=== PATIENT | female | born 1985 | race Caucasian/White ===

== ENCOUNTER 2018-01-19 14:18 | Emergency (ER) | payer OTHER ==
[2018-01-19 14:25] VITALS: O2SAT 99
--- NOTE | 2018-01-19 15:04 | ED PDOC ---
HPI: Female Pain Time Seen by Provider: 01/19/18 14:56 Chief Complaint (Nursing): Female Genitourinary Chief Complaint (Provider): Female Genitourinary History Per: Patient History/Exam Limitations: no limitations Onset/Duration Of Symptoms: Days (since 12/09) Additional Complaint(s): Patient is a 32 y/o female who presents to the ED for evaluation of light vaginal bleeding, onset since 12/09/17. Patient reports she was at that time and started taking pills to abort the . Since starting the pills she's been having the vaginal bleeding but states it is not constant and usually requires 1-2 pads/day. Patient reports that last week she had associated pelvic pain which she describes as cramping that has since improved. 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 She states she was advised that she needs another surgical procedure but Dr. Mclean, her primary doctor, left the practice and patient didn't know where else to follow up, so she came to the ED. No other complaints at present. PMD: was Dr. Cara Mclean, but currently does not have one Abnormal Vaginal Bleeding: Yes Last Menstral Period: November 12 Past Medical History Reviewed: Historical Data, Nursing Documentation, Vital Signs Vital Signs: Last Vital Signs Temp 97.8 F 01/19/18 14:23 Pulse 61 01/19/18 14:23 Resp 16 01/19/18 14:23 BP 112/71 01/19/18 14:23 Pulse Ox 99 01/19/18 14:23 - Medical History PMH: Anemia - Surgical History Other surgeries: cervical biopsy - Family History Family History: States: Unknown Family Hx - Home Medications Home Medications: Ambulatory Orders Medication Instructions Recorded RX: Naproxen 500 mg PO BID PRN #20 tab 01/19/18 - Allergies Allergies/Adverse Reactions: Allergies Allergy/AdvReac Type Severity Reaction Status Date / Time No Known Allergies Allergy Verified 01/19/18 14:23 Review of Systems ROS Statement: Except As Marked, All Systems Reviewed And Found Negative Constitutional: Negative for: Fever, Chills Genitourinary Female: Positive for: Vaginal Bleeding Physical Exam - Reviewed Nursing Documentation Reviewed: Yes Vital Signs Reviewed: Yes - Physical Exam Comments: GENERAL APPEARANCE: Patient is awake, alert, oriented x 3, in no distress. Resti ng comfortably. SKIN: Warm, dry; (-) cyanosis. EYES: (-) conjunctival pallor, (-) scleral icterus. ENMT: Mucous membranes moist. Airway patent, (-) stridor. NECK: Supple, FROM CHEST AND RESPIRATORY: (-) rales, (-) rhonchi, (-) wheezes; breath sounds equal bilaterally. Respirations even and nonlabored. HEART AND CARDIOVASCULAR: (-) irregularity ABDOMEN AND GI: Soft (-) distention. Bowel sounds active x4; (-) tenderness (-) CVA tenderness. EXTREMITIES: (-) deformity NEURO AND PSYCH: Mental status as above; (-) focal findings. Gait: steady. Speech: clear (-) facial asymmetry (-) aphasia. - Laboratory Results Result Diagrams: 01/19/18 16:10 01/19/18 16:10 Urine POC: Negative Urine dip results: Positive for: Blood (moderate). Negative for: Leukocyte Esterase, Nitrate, Ketones, Glucose, Bilirubin, Protein - ECG O2 Sat by Pulse Oximetry: 99 (RA) Pulse Ox Interpretation: Normal Medical Decision Making Medical Decision Making: Time: 15:00 Impression: Menorrhagia Initial Plan: Type and screen CMP Preg test Urine dip CBC w/ diff US - Transvaginal 1505 Udip reviewed. U/A and U/C ordered. Upreg: negative 1730 CBC and CMP unremarkable. H&H stable. U/A (+) hematuria. Pending U/S evaluation Blood Type: O+ Patient states she was able to get an appt with [facility] mid January. 1810 Patient in U/S. 1845 Date of service: 01/19/2018 HISTORY: bleeding COMPARISON: None available. TECHNIQUE: Transvaginal ultrasound FINDINGS: UTERUS: Measures 7.4 x 4.3 x 5.0 cm. Anteverted. ENDOMETRIUM: Measures 8 mm in diameter. Anechoic foci, possibly small cysts. CERVIX: No cervical abnormality identified. RIGHT OVARY: Measures 3.3 x 1.4 x 3.1 cm. Follicles. Blood flow is demonstrated to the right ovary. LEFT OVARY: Measures 2.1 x 1.9 x 2.0 cm. Blood flow is demonstrated to the left ovary. FREE FLUID: No significant free fluid noted. OTHER FINDINGS: None. IMPRESSION: Small anechoic foci within the endometrial cavity, possibly small cysts. status unknown. Clinical correlation. 1845 On re-evaluation, patient offers no additional complaints. On exam, patient remains AAOx3, in no acute distress. Lungs clear to auscultation, cardiac RRR, abdomen soft, non-tender, repeat neuro exam shows no focal findings. VSS, stable for discharge. Lab/Diagnostic results d/w the patient in great detail. Diagnosis of Menorrhagia d/w the patient. Based on history, exam and diagnostic results, plan will be for outpatient follow up with OBGYN. Patient instructed to follow-up with pmd / referral provided / the clinic in 1- 2 days without fail. Return to the emergency room at any time for any new or worsening symptoms. Patient states she fully agrees with and understands discharge instructions. States that she agrees with the plan and disposition. Verbalized and repeated discharge instructions and plan. I have given the patient opportunity to ask any additional questions. ------ Scribe Attestation: Documented by Jaspal Mota, acting as a scribe for Angelina Blackwell PA-C. Provider Scribe Attestation: All medical record entries made by the Scribe were at my direction and personally dictated by me. I have reviewed the chart and agree that the record accurately reflects my personal performance of the history, physical exam, medical decision making, and the department course for this patient. I have also personally directed, reviewed, and agree with the discharge instructions and disposition. Disposition - Clinical Impression Clinical Impression: Menorrhagia - Patient ED Disposition Is Patient to be Admitted: No Counseled Patient/Family Regarding: Studies Performed, Diagnosis, Need For Followup, Rx Given - Disposition Referrals: [facility] [Outside] [facility] [Outside] Disposition: Routine/Home Disposition Time: 18:48 Condition: STABLE Additional Instructions: La atencin mdica de emergencia que recibi hoy se dirigi a los sntomas agudos de presentacin. Si le prescribieron algn medicamento, por favor llnelo y d chelsey indicado. Shanice sntomas pueden tardar varios maza en resolverse. Regrese al Departamento de Emergencia en cualquier momento si los sntomas empeoran, no mejoran o si surge algn otro problema. Comunquese con more mdico en 2 maza para janet reevaluacin y seguimiento / o llame a dick de los mdicos / clnicas a los que blandon referido y que figura en el formulario de Informacin de visitas del paciente que se incluye en more paquete de aiyana. Lleve todos los documentos que recibi al momento del aiyana junto con los medicamentos a more visita de seguimiento. Nuestro tratamiento no puede reemplazar la atencin mdica en curso por parte de un proveedor de atencin primaria (PCP) fuera del departamento de emergencias. Prescriptions: RX: Naproxen 500 mg PO BID PRN #20 tab PRN Reason: Pain, Moderate (4-7) Instructions: Absent or Irregular Periods, Heavy Periods (DC) Forms: [employer] (Icelandic) Print Language: BAHRAINI - POA Present On Arrival: None Results - Lab Results Lab Results: 01/19/18 01/19/18 01/19/18 16:10 16:10 16:10 WBC 7.2 RBC 3.81 Hgb 11.5 L Hct 33.6 L MCV 88.4 MCH 30.3 MCHC 34.3 RDW 14.2 Plt Count 231 MPV 8.2 Neut % (Auto) 54.4 Lymph % (Auto) 28.3 Hall % (Auto) 6.5 Eos % (Auto) 9.5 H Baso % (Auto) 1.3 Neut # (Auto) 3.9 Lymph # (Auto) 2.0 Hall # (Auto) 0.5 Eos # (Auto) 0.7 Baso # (Auto) 0.1 Sodium 141 Potassium 3.8 Chloride 106 Carbon Dioxide 28 Anion Gap 11 BUN 15 Creatinine 0.6 L Est GFR ( Amer) > 60 Est GFR (Non-Af Amer) > 60 Random Glucose 90 Calcium 9.0 Total Bilirubin 0.2 AST 29 ALT 34 Alkaline Phosphatase 57 Total Protein 7.7 Albumin 4.2 Globulin 3.5 Albumin/Globulin Ratio 1.2 Urine Color Urine Clarity Urine pH Ur Specific [place] Urine Protein Urine Glucose (UA) Urine Ketones Urine Blood Urine Nitrate Urine Bilirubin Urine Urobilinogen Ur Leukocyte Esterase Urine RBC (Auto) Urine Microscopic WBC Ur Squamous Epith Cells Urine Bacteria Blood Type O POSITIVE Antibody Screen Negative BBK History Checked No verified bt 01/19/18 15:19 WBC RBC Hgb Hct MCV MCH MCHC RDW Plt Count MPV Neut % (Auto) Lymph % (Auto) Hall % (Auto) Eos % (Auto) Baso % (Auto) Neut # (Auto) Lymph # (Auto) Hall # (Auto) Eos # (Auto) Baso # (Auto) Sodium Potassium Chloride Carbon Dioxide Anion Gap BUN Creatinine Est GFR ( Amer) Est GFR (Non-Af Amer) Random Glucose Calcium Total Bilirubin AST ALT Alkaline Phosphatase Total Protein Albumin Globulin Albumin/Globulin Ratio Urine Color Straw Urine Clarity Clear Urine pH 7.0 Ur Specific [place] 1.005 Urine Protein Negative Urine Glucose (UA) Neg Urine Ketones Negative Urine Blood Moderate Urine Nitrate Negative Urine Bilirubin Negative Urine Urobilinogen 0.2-1.0 Ur Leukocyte Esterase Neg Urine RBC (Auto) 1 Urine Microscopic WBC < 1 Ur Squamous Epith Cells < 1 Urine Bacteria Rare Blood Type Antibody Screen BBK History Checked
[2018-01-19 15:31] LABS: SQUAMOUS EPITHIAL < 1 /hpf (0-5); URINE BACTERIA RARE (<OCC); URINE BILIRUBIN NEGATIVE (NEGATIVE); URINE BLOOD MODERATE (NEGATIVE); URINE CLARITY CLEAR (Clear); URINE COLOR STRAW (YELLOW); URINE GLUCOSE (UA) NEG (Normal); URINE LEUKOCYTE ESTERASE NEG Leu/uL (Negative); URINE PROTEIN NEGATIVE (NEGATIVE); URINE UROBILINOGEN 0.2-1.0 mg/dL (0.2-1.0)
[2018-01-19 16:17] LABS: BASO # 0.1 K/uL (0.0-0.2); BASO % 1.3 % (0.0-2.0); EOS # 0.7 K/uL (0.0-0.7); EOS % 9.5 % (0.0-4.0); HEMOGLOBIN 11.5 g/dL (12.0-16.0); LYMPH % 28.3 % (20.0-40.0); MEAN CELL VOLUME 88.4 fl (81.0-99.0); MEAN CORPUSCULAR HEMOGLOBIN 30.3 pg (27.0-31.0); MEAN CORPUSCULAR HGB CONC 34.3 g/dL (33.0-37.0); MEAN PLATELET VOLUME 8.2 fl (7.2-11.7); MONO # 0.5 K/uL (0.0-0.8); MONO % 6.5 % (0.0-10.0); NEUT # 3.9 K/uL (1.8-7.0); NEUT % 54.4 % (50.0-75.0); NRBC % 0.1 % (0.0-0.0); RBC 3.81 Mil/uL (3.80-5.20); RED CELL DISTRIBUTION WIDTH 14.2 % (11.5-14.5); WHITE BLOOD COUNT 7.2 K/uL (4.8-10.8)
[2018-01-19 16:33] LABS: ALB/GLOB RATIO 1.2 (1.0-2.1); ALBUMIN 4.2 g/dL (3.5-5.0); ALT/SGPT 34 U/L (9-52); AST/SGOT 29 U/L (14-36); BLOOD UREA NITROGEN 15 mg/dl (7-17); GFR NON-AFRICAN AMERICAN > 60
--- NOTE | 2018-01-19 18:42 | US ---
Date of service: 01/19/2018 HISTORY: bleeding COMPARISON: None available. TECHNIQUE: Transvaginal ultrasound FINDINGS: UTERUS: Measures 7.4 x 4.3 x 5.0 cm. Anteverted. ENDOMETRIUM: Measures 8 mm in diameter. Anechoic foci, possibly small cysts. CERVIX: No cervical abnormality identified. RIGHT OVARY: Measures 3.3 x 1.4 x 3.1 cm. Follicles. Blood flow is demonstrated to the right ovary. LEFT OVARY: Measures 2.1 x 1.9 x 2.0 cm. Blood flow is demonstrated to the left ovary. FREE FLUID: No significant free fluid noted. OTHER FINDINGS: None. IMPRESSION: Small anechoic foci within the endometrial cavity, possibly small cysts. status unknown. Clinical correlation.
[2018-01-19 18:58] VITALS: BP 104/65; PULSE 69; RESP 18; TEMP 98.3
== END 2018-01-19 19:00 | disposition home or self-care (01) ==
LOC: H.ER 14:18
DX: N92.0 Excessive and frequent menstruation with regular cycle (principal)

== ENCOUNTER 2018-05-17 07:29 | Day surgery (SDC) | payer SELFPAY ==
[2018-05-12 18:15] VITALS: BMI 23.3
[2018-05-17 08:24] VITALS: RESP 18
[2018-05-17] MEDS ORDERED: Lactated Ringer's 1,000 ML IV ONE (08:28)
[2018-05-17] MEDS ORDERED: Strong Iodine Topical Sol. 5%-10% ONE (08:59)
[2018-05-17] MEDS ORDERED: Ferric Subsulfate Sol(60 mL) ONE (08:59)
[2018-05-17] MEDS ORDERED: ACETIC ACID 3% 30 ML LIQUID MC ONE (08:59)
[2018-05-17] MEDS ORDERED: Midazolam 2 MG/2 ML VIAL ONE (09:40)
[2018-05-17] MEDS ORDERED: Propofol 10 mg/ml Inj (20 ML) ONE (09:40)
[2018-05-17] MEDS ORDERED: Dexamethasone 4 mg/1 ml ONE (10:12)
[2018-05-17] MEDS ORDERED: Strong Iodine Topical Sol. 5%-10% TOP ONE (10:12)
[2018-05-17] MEDS ORDERED: Ferric Subsulfate Sol(60 mL) TP ONE (10:20)
[2018-05-17 13:07] VITALS: O2SAT 100
[2018-05-17 13:52] VITALS: BP 112/78; PULSE 58; TEMP 98
--- NOTE | 2018-05-23 18:37 | OP ---
PROCEDURE DATE: 05/17/2018 PREOPERATIVE DIAGNOSIS: Cervical dysplasia with cervical intraepithelial neoplasia 2. POSTOPERATIVE DIAGNOSIS: Cervical dysplasia with cervical intraepithelial neoplasia 2. PROCEDURE: Loop electrosurgical excision procedure. SURGEON: Binu Spears MD CIRCUS ARTIST: Agustín Cunha, PGY-2 ANESTHESIA: General. FINDINGS: Area of non-uptake seen surrounding the entire squamocolumnar junction when Lugol solution was applied. ESTIMATED BLOOD LOSS: 5 mL URINE OUTPUT: Approximately 20 mL clear drained by red rubber catheter. COMPLICATIONS: None. INTRAVENOUS FLUIDS: 900 mL Lactated Ringer's. PATHOLOGY: Loop cone biopsy. DESCRIPTION OF PROCEDURE: The patient was taken to the operating room and given general anesthesia without difficulty. She was then placed in the dorsal lithotomy position. She was prepped and draped in the usual sterile manner after which a red rubber catheter was used to drain her bladder of clear yellow urine. An insulated bivalve speculum was then inserted into the vagina to expose the cervix. Lugol solution was then applied to the cervix. Areas of non-uptake was seen surrounding the transformation zone. A loop electrode was then used to obtain a cone biopsy and this was carried out in anterior to posterior manner. There was minimal bleeding encountered after the excision of the cone biopsy. The specimen was removed to be sent to pathology. The area surrounding the epithelium was cauterized with a ball electrode and the bed of the excised tissue was also cauterized and good hemostasis was noted. All instruments were then removed. The patient was then cleaned, repositioned and placed in supine position. She was awakened from anesthesia without difficulty and transferred to the recovery room in stable condition. She tolerated the procedure well with no complications noted. She would be discharged to home the same day, was instructed to use Motrin for any pain and to Continue pelvic rest and return to the office in two weeks for pathology review and postoperative evaluation. Binu Spears MD MTDFredi
== END 2018-05-17 13:55 | disposition home or self-care (01) ==
LOC: H.OPSURG 07:29
PROVIDERS: ATTEND Obstetrics & Gynecology
DX: N87.1 Moderate cervical dysplasia (principal); D64.9 Anemia, unspecified; M54.9 Dorsalgia, unspecified; N72 Inflammatory disease of cervix uteri
CPT/HCPCS: 57522; 88305; J1100; J2250; J2405; J2704; J3010; J7030; J7120